=== PATIENT | female | born 1955 | race Caucasian/White ===

== ENCOUNTER 2017-10-28 11:59 | Emergency (ER) | payer OTHER ==
[~2017-10-28] VITALS: Ht 152.4 cm; Wt 88.9 kg
[~2017-10-28 11:59] MED LIST: ASPI-495; CHOLESTEROL PILL; LISI-603 PO; METO-356; NITR0.4T48; [UNRECOGNIZED DRUG - REMARK]
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
[2017-10-28] MEDS ORDERED: TETRACAINE HCL/PF 0.5% UD 2 ML BOTTLE ONE (12:19)
[2017-10-28] MEDS ORDERED: FLUORESCEIN SODIUM OPHTH 1 EA STRIP ONE ×2 (12:19→13:31)
[2017-10-28] MEDS ORDERED: DIAZEPAM 10 MG TABLET PO ONE (12:30)
[2017-10-28] MEDS ORDERED: KETOROLAC TROMETHAMINE INJ 60 MG/2 ML VIAL IM ONE (12:30)
[2017-10-28] MEDS ORDERED: TETRACAINE HCL/PF 0.5% UD 2 ML BOTTLE EACHEYE ONE (12:30)
[2017-10-28] MEDS ORDERED: FLUORESCEIN SODIUM OPHTH 1 EA STRIP OP ONE (12:30)
--- NOTE | 2017-10-28 12:30 | NUR ---
BOTH EYES IRRIGATED PER MD ORDERS.
[2017-10-28] MEDS ORDERED: KETOROLAC TROMETHAMINE 15 MG/ML VIAL ONE (12:46)
[2017-10-28] MEDS ORDERED: DIAZEPAM 5 MG TABLET ONE (12:46)
--- NOTE | 2017-10-28 12:50 | NUR ---
saskia gutierrez at bedside for evaluation.
[2017-10-28] MEDS ORDERED: ACETAMINOPHEN 325 MG TABLET ONE (14:58)
[2017-10-28] MEDS ORDERED: ACETAMINOPHEN 325 MG TABLET PO ONE (15:00)
[2017-10-28 15:06] VITALS: BP 132/81
--- NOTE | 2017-10-28 15:08 | NUR ---
Patient discharged to home in stable condition. Written and verbal after care instructions given. Patient verbalizes understanding of instruction.
== END 2017-10-28 15:07 | disposition home or self-care (01) ==
LOC: ER 12:01
DX: S16.1XXA Strain of muscle, fascia and tendon at neck level, initial encounter (principal); S05.8X2A Other injuries of left eye and orbit, initial encounter; F17.200 Nicotine dependence, unspecified, uncomplicated; I10 Essential (primary) hypertension; E78.00 Pure hypercholesterolemia, unspecified; E11.9 Type 2 diabetes mellitus without complications; I25.10 Atherosclerotic heart disease of native coronary artery without angina pectoris; Z98.890 Other specified postprocedural states; Z88.6 Allergy status to analgesic agent; Z95.818 Presence of other cardiac implants and grafts; Z87.442 Personal history of urinary calculi; Z79.899 Other long term (current) drug therapy; Z79.82 Long term (current) use of aspirin; Z79.84 Long term (current) use of oral hypoglycemic drugs; V43.53XA Car driver injured in collision with pick-up truck in traffic accident, initial encounter; Y93.89 Activity, other specified; Y92.413 State road as the place of occurrence of the external cause; Y99.8 Other external cause status
CPT/HCPCS: 71045-TC; 72125-TC; 82962-TC; A4606; J1885; Z7610

== ENCOUNTER 2023-02-22 21:14 | Inpatient (IN) | payer OTHER ==
[~2023-02-22] VITALS: Ht 152.4 cm; Wt 88.0 kg
[~2023-02-22 21:14] MED LIST changes: -LISI-603 PO; +LISI20TA30 PO; -METO-356; +METO25TA4
[2023-02-22 22:01] LABS: BASOPHILS % (AUTO) 0.2 % (0.0-2.0); EOSINOPHILS % (AUTO) 0.5 % (0.0-6.0); HEMATOCRIT 34 % (33-45); HEMOGLOBIN 11.6 g/dL (11.5-14.8); LYMPHOCYTES # (AUTO) 1.1 K/uL (0.8-4.8); LYMPHOCYTES % (AUTO) 13.4 % (20.0-44.0); MEAN CORPUSCULAR HEMOGLOBIN 27 PG (26.0-33.0); MEAN CORPUSCULAR HGB CONC 34 g/dl (31.0-36.0); MEAN CORPUSCULAR VOLUME 80 fL (82-100); MONOCYTES # (AUTO) 0.5 K/uL (0.1-1.30); MONOCYTES % (AUTO) 5.7 % (2.0-12.0); NEUTROPHILS # (AUTO) 6.7 K/uL (1.8-8.9); NEUTROPHILS % (AUTO) 80.2 % (43.0-81.0); PLATELET COUNT (AUTO) 251 K/uL (150-450); RED BLOOD CELL COUNT(AUTO) 4.33 MIL/uL (4.0-5.2); RED CELL DISTRIBUTION WIDTH 15.6 % (11.5-15.0); WHITE BLOOD COUNT (AUTO) 8.3 K/uL (4.3-11.0)
[2023-02-22] MEDS ORDERED: NITROGLYCERIN 0.4 MG/TAB BOTTLE ONE (22:23)
[2023-02-22] MEDS ORDERED: ONDANSETRON HCL/PF 4 MG/2 ML VIAL ONE (22:23)
[2023-02-22] MEDS ORDERED: ASPIRIN 325 MG TABLET ONE (22:23)
[2023-02-22] MEDS ORDERED: ONDANSETRON HCL/PF 4 MG/2 ML VIAL IV ONE (22:30)
[2023-02-22] MEDS ORDERED: ASPIRIN 325 MG TABLET PO ONE (22:30)
[2023-02-22] MEDS ORDERED: NITROGLYCERIN 0.4 MG/TAB BOTTLE SL ONE (22:30)
[2023-02-22 22:40] LABS: CALCIUM, SERUM 9.5 mg/dL (8.5-10.1); CARBON DIOXIDE 27 mmol/L (21-32); CHLORIDE 98 mmol/L (98-107); CREATININE 0.9 mg/dL (0.6-1.3); GLUCOSE 154 mg/dL (74-106); NT-PRO BNP 238 pg/mL (0-125); SODIUM SERUM 135 mmol/L (136-145); UREA NITROGEN, BLOOD 13 mg/dL (7-18)
[2023-02-22 22:49] LABS: POTASSIUM 2.4 mmol/L (3.5-5.1)
[2023-02-22] MEDS ORDERED: POTASSIUM CHLORIDE 10 MEQ/50 ML PREMIXED IVPB FOR PERIPHERAL LINE IV ONE (23:00)
[2023-02-22] MEDS ORDERED: POTASSIUM CHLORIDE 20 MEQ TAB.PRT.SR PO ONE ×2 (23:00→23:12)
[2023-02-22] MEDS ORDERED: POTASSIUM CL. PREMIX PERIPHER. 50 ML ONE (23:11)
[2023-02-22 23:14] LABS: APPEARANCE,URINE CLEAR (CLEAR); BILIRUBIN,URINE NEGATIVE (NEGATIVE); BLOOD, URINE NEGATIVE Ery/uL (NEGATIVE); COLOR,URINE YELLOW (YELLOW); KETONES,URINE NEGATIVE (NEGATIVE); LEUKOCYTE ESTERASE ,URINE NEGATIVE (NEGATIVE); NITRITE, URINE NEGATIVE (NEGATIVE); PROTEIN,URINE NEGATIVE (NEGATIVE); UGLUCOSE NEGATIVE (NEGATIVE); UROBILINOGEN,URINE 0.2 EU/dL (0.2)
[2023-02-22] MEDS ORDERED: IV NS 0.9% 1,000 ML BAG IV ONE (23:30)
[2023-02-23] MEDS ORDERED: POTASSIUM CL. PREMIX PERIPHER. 50 ML ONE (00:18)
[2023-02-23] MEDS ORDERED: POTASSIUM CL. PREMIX PERIPHER. 100 ML ONE (00:59)
[2023-02-23] MEDS ORDERED: AMIT50TA3 PO (01:02)
[2023-02-23] MEDS ORDERED: ATOR80TA PO (01:02)
[2023-02-23] MEDS ORDERED: NIFE-35 PO (01:02)
[2023-02-23] MEDS ORDERED: GLIP5TAB13 PO (01:02)
[2023-02-23] MEDS ORDERED: EZET10TA16 PO (01:02)
[2023-02-23 01:25] VITALS: BP 126/69; TEMP 99.7; O2SAT 97
[2023-02-23] MEDS ORDERED: MAGNESIUM HYDROXIDE 30 ML UDC PO PRN (01:30)
[2023-02-23] MEDS ORDERED: MORPHINE SULFATE INJ 2 MG/ML DISP.SYRIN IV PRN (01:30)
[2023-02-23] MEDS ORDERED: ONDANSETRON HCL/PF 4 MG/2 ML VIAL IVP PRN (01:30)
[2023-02-23] MEDS ORDERED: MAG HYDROX/AL HYDROX/SIMETH 30 ML UDC PO PRN (01:30)
[2023-02-23] MEDS ORDERED: NITROGLYCERIN 0.4 MG/TAB BOTTLE SL PRN (01:30)
[2023-02-23 04:00] VITALS: BP 130/75; TEMP 98.2; O2SAT 99
[2023-02-23] MEDS: ACETAMINOPHEN 325 MG TABLET PO PRN ×4 (04:17→23:10)
[2023-02-23 08:00] VITALS: BP 114/71; TEMP 98.2; O2SAT 99
[2023-02-23] MEDS ORDERED: PANTOPRAZOLE 40 MG VIAL IV SCH (09:00)
[2023-02-23] MEDS: ASPIRIN 81 MG TAB.CHEW PO SCH (09:04)
[2023-02-23] MEDS: ENOXAPARIN SODIUM 40 MG/0.4 ML DISP.SYRIN SQ SCH (09:13)
[2023-02-23] MEDS: glipiZIDE 5 MG TABLET PO SCH (10:00)
[2023-02-23] MEDS ORDERED: EZETIMIBE 10 MG TABLET PO SCH (10:00)
[2023-02-23 10:26] LABS: CALCIUM, SERUM 8.7 mg/dL (8.5-10.1); CREATININE 0.8 mg/dL (0.6-1.3); POTASSIUM 3.1 mmol/L (3.5-5.1)
[2023-02-23] MEDS: POTASSIUM CHLORIDE 20 MEQ TAB.PRT.SR PO SCH ×5 (10:32→14:45)
[2023-02-23] MEDS: METOPROLOL TARTRATE 50 MG TABLET PO SCH ×3 (10:32→17:13)
[2023-02-23] MEDS ORDERED: IOHEXOL-350 100 ML VIAL IV ONE (11:11)
[2023-02-23] MEDS ORDERED: NITROGLYCERIN 0.4 MG/TAB BOTTLE ONE (11:11)
[2023-02-23] MEDS ORDERED: CT SWABBABLE VALVE TRANS SET 1 EA INFUS.SET MC ONE (11:12)
[2023-02-23] MEDS ORDERED: METOPROLOL TARTRATE INJ 5 MG/5 ML AMPUL ONE ×3 (11:12→11:45)
[2023-02-23] MEDS ORDERED: IV NS 0.9% 250 ML IV ONE (11:12)
[2023-02-23] MEDS: METOPROLOL TARTRATE INJ 5 MG/5 ML AMPUL IVP PRN ×5 (11:25→11:50)
[2023-02-23] MEDS ORDERED: NITROGLYCERIN 0.4 MG/TAB BOTTLE SL ONE ×2 (11:30→17:30)
[2023-02-23 12:00] VITALS: BP 105/68; TEMP 100; O2SAT 99
[2023-02-23] MEDS ORDERED: METOPROLOL TARTRATE 50 MG TABLET PO SCH (12:00)
[2023-02-23 14:44] LABS: THYROID STIMULATING HORMONE 1.341 uIU/mL (0.358-3.74)
[2023-02-23 15:03] LABS: ALBUMIN 3.3 g/dL (3.4-5.0); BILIRUBIN,TOTAL 0.6 mg/dL (0.2-1.0)
[2023-02-23 15:04] LABS: TOTAL PROTEIN, SERUM 6.7 g/dL (6.4-8.2)
[2023-02-23 15:32] LABS: MAGNESIUM 1.8 mg/dL (1.8-2.4); PHOSPHORUS 3.6 mg/dL (2.5-4.9)
[2023-02-23 16:00] VITALS: BP 120/72; TEMP 99.1; O2SAT 99
[2023-02-23] MEDS ORDERED: AMITRIPTYLINE HCL 25 MG TABLET PO SCH (18:00)
[2023-02-23] MEDS ORDERED: ATORVASTATIN 40 MG TABLET PO SCH (18:00)
[2023-02-23 20:00] VITALS: BP 116/49; TEMP 98; O2SAT 99
[2023-02-23] MEDS: EZETIMIBE 10 MG TABLET PO SCH ×2 (20:15→20:18)
[2023-02-23 22:44] LABS: CREATININE, URINE 36.7 MG/DL (30.0-125.0)
[2023-02-23 22:45] LABS: URINE TOTAL PROTEIN 9.1 mg/dL (0-11.9)
[2023-02-24] VITALS: BP 104/66; TEMP 99.8; O2SAT 99
[2023-02-24 04:00] VITALS: BP 135/82; TEMP 98.6; O2SAT 99
[2023-02-24] MEDS: METOPROLOL TARTRATE 50 MG TABLET PO SCH ×2 (05:26)
[2023-02-24 06:45] LABS: BASOPHILS % (AUTO) 0.3 % (0.0-2.0); EOSINOPHILS % (AUTO) 0.2 % (0.0-6.0); HEMATOCRIT 32 % (33-45); HEMOGLOBIN 10.7 g/dL (11.5-14.8); LYMPHOCYTES % (AUTO) 22.6 % (20.0-44.0); MEAN CORPUSCULAR HEMOGLOBIN 27 PG (26.0-33.0); MEAN CORPUSCULAR HGB CONC 34 g/dl (31.0-36.0); MEAN CORPUSCULAR VOLUME 82 fL (82-100); MONOCYTES # (AUTO) 0.5 K/uL (0.1-1.30); MONOCYTES % (AUTO) 11.2 % (2.0-12.0); NEUTROPHILS # (AUTO) 3.1 K/uL (1.8-8.9); NEUTROPHILS % (AUTO) 65.7 % (43.0-81.0); PLATELET COUNT (AUTO) 173 K/uL (150-450); RED BLOOD CELL COUNT(AUTO) 3.93 MIL/uL (4.0-5.2); RED CELL DISTRIBUTION WIDTH 15.5 % (11.5-15.0); WHITE BLOOD COUNT (AUTO) 4.7 K/uL (4.3-11.0)
[2023-02-24 07:23] LABS: CALCIUM, SERUM 8.8 mg/dL (8.5-10.1); CREATININE 0.8 mg/dL (0.6-1.3); MAGNESIUM 2.1 mg/dL (1.8-2.4); PHOSPHORUS 3.4 mg/dL (2.5-4.9); POTASSIUM 3.6 mmol/L (3.5-5.1)
[2023-02-24 08:00] VITALS: BP 146/85; TEMP 99.1; O2SAT 94
[2023-02-24] MEDS ORDERED: PANTOPRAZOLE 40 MG TABLET.DR PO SCH (09:00)
[2023-02-24] MEDS: ASPIRIN 81 MG TAB.CHEW PO SCH (09:10)
[2023-02-24] MEDS: glipiZIDE 5 MG TABLET PO SCH (09:11)
[2023-02-24] MEDS: ENOXAPARIN SODIUM 40 MG/0.4 ML DISP.SYRIN SQ SCH (09:23)
[2023-02-24] MEDS: ACETAMINOPHEN 325 MG TABLET PO PRN (10:06)
[2023-02-24] MEDS ORDERED: METO50TA16 PO (11:55)
[2023-02-24] MEDS ORDERED: ASPI-1169 PO (11:55)
[2023-02-24] MEDS ORDERED: PANT40TA49 PO (11:55)
== END 2023-02-24 12:00 | disposition home or self-care (01) | DRG 203 ==
LOC: ER 21:15 → TELE1 02-23 00:29
PROVIDERS: ADMIT Nurse Practitioner Acute Care; ATTEND Internal Medicine
DX: M94.0 Chondrocostal junction syndrome [Tietze] (principal); K76.0 Fatty (change of) liver, not elsewhere classified; E87.1 Hypo-osmolality and hyponatremia; E87.6 Hypokalemia; I25.10 Atherosclerotic heart disease of native coronary artery without angina pectoris; E53.8 Deficiency of other specified B group vitamins; E66.01 Morbid (severe) obesity due to excess calories; E78.5 Hyperlipidemia, unspecified; I10 Essential (primary) hypertension; M79.7 Fibromyalgia; Z79.82 Long term (current) use of aspirin; Z83.3 Family history of diabetes mellitus; Z95.5 Presence of coronary angioplasty implant and graft; Z87.442 Personal history of urinary calculi; H91.10 Presbycusis, unspecified ear; M85.80 Other specified disorders of bone density and structure, unspecified site; R07.89 Other chest pain; Z68.37 Body mass index [BMI] 37.0-37.9, adult; Z79.84 Long term (current) use of oral hypoglycemic drugs; N83.9 Noninflammatory disorder of ovary, fallopian tube and broad ligament, unspecified; E11.65 Type 2 diabetes mellitus with hyperglycemia
CPT/HCPCS: 36415; 70450-TC; 71045-TC; 75574; 80048-TC; 80053-TC; 80061-TC; 82570-TC; 83735-TC; 83880; 83935-TC; 84100-TC; 84300-TC; 84439-TC; 84443-TC; 84484-TC; 85025-TC; 87040-TC; 93307-TC; 97116-TC; 97530-TC; A4223; C9113; G0378; J1650; J2405; J3480; J3490; J7050; Q9967